=== PATIENT | male | born 1940 | race Caucasian/White ===

== ENCOUNTER → 2018-01-12 | Outpatient (CLI) | payer MEDICARE ==
[~2018-01-12] MED LIST: AMLO5TAB3 PO; ASCA500 PO; CHOL1000 PO; COEN1CAP PO; DABI1CAP PO; FLM4 PO; GLC/500 PO; LISI-729 PO; NTRGSL/4 UT; OMEG10007 PO; PRLSR20 PO; PRS5 PO; SPIR25TA PO; SYMIN160 INH
--- NOTE | 2018-01-12 11:04 | DIAGNOSTIC IMAGING REPORT ---
ART DOP LOWER EXT BILAT CLINICAL HISTORY: BILATERAL LOWER EXT CLAUDICATION pain. Claudication. COMPARISON STUDY: None FINDINGS: Real-time as well as Doppler evaluation of the arterial structures of the lower legs was performed. Waveforms are triphasic throughout. Velocity characteristics are unremarkable. The following blood pressure indices were obtained. On the right, posterior tibial is 0.97 and dorsalis pedis is 0.77. On the left, posterior tibial is 1.12 and dorsalis pedis is 0.8. IMPRESSION: No significant stenosis. Minimal atherosclerotic change of the small caliber vessels of the lower extremities. The above report was generated using voice recognition software. It may contain grammatical, syntax or spelling errors. Electronically signed by: Inderjit Hernandez M.D. 01/12/2018 11:03 AM Dictated Date/Time: 01/12/2018 11:01 AM
== END | disposition home or self-care (01) ==
LOC: C.ULTR 09:35
PROVIDERS: ATTEND Physician Assistant
DX: I73.9 Peripheral vascular disease, unspecified (principal)

== ENCOUNTER → 2018-01-28 | Day surgery (SDC) | payer MEDICARE ==
[2018-01-05 08:58] VITALS: BMI 32.0
--- NOTE | 2018-01-11 15:34 | PAT Medication Instructions ---
Service Date Jan 11, 2018. Current Home Medication List Amlodipine (Norvasc), 5 MG PO QAM Ascorbic Acid (Vitamin C), 1 TAB PO BID Budesonide/Formoterol Fumarate (Symbicort 160/4.5 Inhaler ), 2 PUFFS INH QPM Cholecalciferol (Vitamin D3), 1 TAB PO BID Coenzyme W61-Ofagehh E (Coq10 St-100 100-100 mg-Unit), 1 CAP PO HS Dabigatran Etexilate Mesylate (Pradaxa), 1 CAP PO BID Finasteride (Finasteride), 1 TAB PO QAM Fish Oil ([place]-3), 1 CAP PO QAM Lisinopril (Zestril), 5 MG PO QAM Metformin Hcl (Glucophage), 500 MG PO BID Nitroglycerin (Nitrostat), 0.4 MG UT PRN Omeprazole (Prilosec), 20 MG PO QAM Spironolactone (Aldactone), 12.5 MG PO BID Tamsulosin HCl (Tamsulosin HCl), 1 CAP PO BID Medication Instructions For Your Scheduled Surgery - Hold the following medications 2 weeks prior to surgery: Fish Oil ([place]-3), 1 CAP PO QAM Coenzyme J24-Qyvpghk E (Coq10 St-100 100-100 mg-Unit), 1 CAP PO HS - Check with surgeon and prescribing physician for instructions: Dabigatran Etexilate Mesylate (Pradaxa), 1 CAP PO BID - Hold the following medications the morning of surgery: Ascorbic Acid (Vitamin C), 1 TAB PO BID Cholecalciferol (Vitamin D3), 1 TAB PO BID Finasteride (Finasteride), 1 TAB PO QAM Lisinopril (Zestril), 5 MG PO QAM Metformin Hcl (Glucophage), 500 MG PO BID Amlodipine (Norvasc), 5 MG PO QAM Spironolactone (Aldactone), 12.5 MG PO BID Tamsulosin HCl (Tamsulosin HCl), 1 CAP PO BID - Take the following medications the morning of surgery with a sip of water: Omeprazole (Prilosec), 20 MG PO QAM Nitroglycerin (Nitrostat), 0.4 MG UT PRN (if needed) - Take the following medications as scheduled the night before surgery: Spironolactone (Aldactone), 12.5 MG PO BID Tamsulosin HCl (Tamsulosin HCl), 1 CAP PO BID Nitroglycerin (Nitrostat), 0.4 MG UT PRN (if needed) Metformin Hcl (Glucophage), 500 MG PO BID Cholecalciferol (Vitamin D3), 1 TAB PO BID Budesonide/Formoterol Fumarate (Symbicort 160/4.5 Inhaler ), 2 PUFFS INH QPM Ascorbic Acid (Vitamin C), 1 TAB PO BID If you have any questions please call us at [phone] or [phone] or [phone]
[2018-01-12 11:22] VITALS: BMI 31.0
[2018-01-12 12:16] LABS: BASO % 0.4 %; BASO ABS # 0.03 K/uL (0-0.2); EOS % 4.5 %; HEMATOCRIT 39.6 % (42-52); HEMOGLOBIN 13.3 g/dL (14.0-18.0); IG# 0.01 K/uL (0.00-0.02); LYMPH % 20.7 %; LYMPH ABS # 1.39 K/uL (1.2-3.4); MEAN CELL VOLUME 97.8 fL (80-100); MEAN CORPUSCULAR HEMOGLOBIN 32.8 pg (25-34); MEAN CORPUSCULAR HGB CONC 33.6 g/dl (32-36); MEAN PLATELET VOLUME 9.9 fL (7.4-10.4); NEUT % 65.3 %; NEUT ABS # 4.37 K/uL (1.4-6.5); PLATELET COUNT 233 K/uL (130-400); RED CELL DISTRIBUTION WIDTH CV 14.9 % (11.5-14.5); RED CELL DISTRIBUTION WIDTH SD 53.3 fL (36.4-46.3)
--- NOTE | 2018-01-12 12:22 | DIAGNOSTIC IMAGING REPORT ---
CHEST 2 VIEWS ROUTINE CLINICAL HISTORY: pat preoperative evaluation COMPARISON STUDY: No previous studies for comparison. FINDINGS: Mild cardiomegaly.] Median sternotomy. Emphysematous change. Mild interstitial prominence both lung bases possibly chronic. IMPRESSION: 1. Emphysematous change. 2. Prominent bibasilar interstitial markings possibly chronic The above report was generated using voice recognition software. It may contain grammatical, syntax or spelling errors. Electronically signed by: Inderjit Hernandez M.D. 01/12/2018 12:21 PM Dictated Date/Time: 01/12/2018 12:20 PM
[~2018-01-28] VITALS: Ht 167.6 cm; Wt 88.9 kg
[~2018-01-28] MED LIST changes: +ALBUT/IPRATROP 3MG/0.5MG NEB 3 ML VIAL INH ONE; +ATROPINE SULFATE 0.1 MG/ML 5ML SYR IV PRN; +BELLADONNA/OPIUM SUPP 60 MG SUPP PR ONE; +CIPR-255 PO; +CIPROFLOXACIN / D5W 400 MG IV SCH; +DEXAMETHASONE SOD INJ 4 MG/ML VIAL ONE; +EpHEDrine SULFATE 50MG/5ML SYR ONE; +EpHEDrine SULFATE INJ 50 MG/ML AMP IV PRN; +FENTANYL CITRATE INJ 50 MCG/1 ML 2 ML VIAL ONE; +HYDROmorphone INJ 1 MG/ML SYR IV PRN; +LACTATED RINGER'S 1000ML 1,000 ML IV SCH; +LIDOCAINE HCL 2% 2 ML VIAL (20MG/ML) ONE; +ONDANSETRON INJ 2 MG/ML 2 ML VIAL IV PRN; +ONDANSETRON INJ 2 MG/ML 2 ML VIAL ONE; +OXYC-57 PO; +OXYCODONE/ACETAMINOPHEN 5-325 TAB PO PRN; +PHEN-775 PO; +PHENAZOPYRIDINE HCL 200 MG TAB PO PRN; +PROPOFOL IV EMULSION 10 MG/ML 20 ML VIAL ONE
[2018-01-28 06:12] VITALS: BP 150/91; PULSE 66; TEMP 36.6; O2SAT 96; Ht 167.6 cm; Wt 88.9 kg
[2018-01-28 07:54] VITALS: O2SAT 91
--- NOTE | 2018-01-28 08:07 | History and Physical ---
History Date of Service: Jan 28, 2018. Chief Complaint: BPH Primary Care Physician: Lyudmila Herrera D.O. Pt seen a urologist before?: Yes History of Present Illness 78 yo male for GLTURP today. Past notes reviewed. He denies changes in his general health since his last visit. Prior cysto anatomy noted, stopped Pradaxa 6 days as instructed. No new changes, remains on BPH meds. Laboratory Labs were reviewed and are within normal limits unless listed below. Labs are available in the chart and at [facility] Past History Past Medical History: arthritis, BPH, coronary artery disease, diabetes, high cholesterol, other (emphysema) Past Surgical History: appendectomy, cardiac catheterization, cholecystectomy, other Family History Cardiac disease, DM Social History Hx Tobacco Use In Past Year?: No (QUIT 35 YEARS AGO) Smoking: quit greater than 1 year Marital status: Housing status: lives with significant other Occupation status: retired Allergies Coded Allergies: No Known Allergies (Unverified , 01/28/18) Medications Home Medications: Home Meds and Scripts Medications Dose Route/Sig Max Daily Dose Days Date Category Nitrostat (Nitroglycerin) 0.4 Mg Tab 0.4 Mg UT PRN 01/05/18 Reported Symbicort 160/4.5 Inhaler (Budesonide/Formoterol Fumarate) Aero 2 Puffs INH QPM 01/05/18 Reported Vitamin D3 (Cholecalciferol) 1,000 Unit Tab 1 Tab PO BID 01/05/18 Reported Finasteride 5 Mg Tab 1 Tab PO QAM 12/22/17 Reported Prilosec (Omeprazole) 20 Mg Capcr 20 Mg PO QAM 12/22/17 Reported [place]-3 (Fish Oil) 1 Ea Cap 1 Cap PO QAM 12/22/17 Reported Vitamin C (Ascorbic Acid) 500 Mg Tab 1 Tab PO BID 12/22/17 Reported Aldactone (Spironolactone) 25 Mg Tab 12.5 Mg PO BID 12/22/17 Reported Norvasc (Amlodipine Besylate) 5 Mg Tab 5 Mg PO QAM 12/22/17 Reported Glucophage (Metformin Hcl) 500 Mg Tab 500 Mg PO BID 12/22/17 Reported Tamsulosin HCl 0.4 Mg Cap 1 Cap PO BID 12/22/17 Reported Zestril (Lisinopril) 5 Mg Tab 5 Mg PO QAM 12/22/17 Reported Pradaxa (Dabigatran Etexilate Mesylate) 75 Mg Cap 1 Cap PO BID 12/22/[address]-100 100-100 mg-Unit (Coenzyme A31-Nxfkrqw E) 1 Cap Cap 1 Cap PO HS 12/22/17 Reported Inpatient Medications: Current Inpatient Medications Medications (Trade) Dose Ordered Sig/Magen Route Start Time Stop Time Status Last Admin Dose Admin Lactated Ringer's 1,000 ml @ 15 mls/hr Q24H IV 01/28/18 06:00 01/29/18 05:59 01/28/18 06:30 15 MLS/HR Ciprofloxacin/ Dextrose 200 ml @ 100 mls/hr PREOP IV 01/28/18 06:00 01/28/18 18:00 Fentanyl Citrate (Fentanyl Inj) 25 mcg Q5M PRN IV 01/28/18 07:15 01/28/18 12:00 Hydromorphone HCl (Dilaudid Inj) 0.5 mg Q5M PRN IV 01/28/18 07:15 01/28/18 12:15 Ondansetron HCl (Zofran Inj) 4 mg ONE PRN IV 01/28/18 07:15 01/28/18 12:15 Ephedrine Sulfate (EpHEDrine SULFATE INJ) 5 mg Q5M PRN IV 01/28/18 07:15 01/28/18 12:15 Atropine Sulfate (Atropine Sulfate 0.1mg/ml Inj) 0.5 mg Q1M PRN IV 01/28/18 07:15 01/28/18 12:15 Review of Systems Review of Systems Constitutional: No fever, No chills Eyes: No double vision Neurological: No passing out Endocrine: No too hot Gastrointestinal: No nausea, No vomiting Cardiovascular: No angina Respiratory: No coughing up blood Skin: No boils Ears / Nose / Throat: No hearing loss Psychologic / Mental: No trouble remembering Male : + weak stream Physical Exam Vital Signs: Vital Signs Past 12 Hours Date Time Temp Pulse Resp B/P (MAP) Pulse Ox O2 Delivery O2 Flow Rate FiO2 01/28/18 07:54 15 91 Room Air 01/28/18 06:12 36.6 66 18 150/91 (110) 96 Room Air Physical Exam: General Appearance: WD/WN, no apparent distress ENT: hearing grossly normal Neck: supple, no adenopathy Respiratory/Chest: no respiratory distress, no accessory muscle use Cardiovascular: no JVD Gastrointestinal: Abdomen: normal abdomen Extremities: non-tender Neurologic/Psychiatric: alert Skin: normal color Assessment & Plan Assessment & Plan A/P 78 yo male with BPH. GLTURP as planned. NICCI Mccollum, SOMMERs Consent reviewed.
--- NOTE | 2018-01-28 08:28 | Discharge Instructions ---
Discharge Instructions Date of Service Jan 28, 2018. Admission Reason for Admission: Benign Prostatic Hyperplasia W/Urinary Obstruction Discharge Discharge Diagnosis / Problem: BPH s/p GLTURP Discharge Goals Goal(s): Improve function, Improve disease control, Therapeutic intervention Activity Recommendations Activity Limitations: as noted below Lifting Limitations: no more than 25 pounds, gradually increase as tolerated Exercise/Sports Limitations: rest today, gradually increase as tolerated May Resume Sexual Activity: after follow-up appointment Shower/Bathe: tomorrow (no tub bath with catheter in place) . Instructions / Follow-Up Instructions / Follow-Up Catheter removal in urology office at [address] [place] [address] on Feb 02 at 9 am Postoperative MD visit on Feb 15 at 10:15 AM in [place] office Call office with questions. Current Hospital Diet Patient's current hospital diet: Discharge Diet Recommended Diet: Regular Diet (good fluid intake) Procedures Procedures Performed: Greenlight TURP Pending Studies Studies pending at discharge: no Medical Emergencies . Who to Call and When: Medical Emergencies: If at any time you feel your situation is an emergency, please call 911 immediately. . Non-Emergent Contact Non-Emergency issues call your: Urologist Call Non-Emergent contact if: you have a fever, temperature is above 101, your pain is not controlled, your pain is worsening, your pain is unusual for you, your pain is concerning you, you have any medication questions . . "Provider Documentation" section prepared by Beny Michele. . [place] Drug Monitoring Program Search Results: patient reviewed within database, no issues identified (no recent narcotic Rx)
--- NOTE | 2018-01-28 09:10 | [facility] Operative Report ---
Operative Report Operative Date Jan 28, 2018. Pre-Operative Diagnosis Benign Prostatic Hyperplasia with obstruction and lower urinary tract symptoms Post-Operative Diagnosis Same Procedure(s) Performed Greenlight vaporization of prostate gland Surgeon Dr. Beny Michele Loan Processor Surgeon(s) none Estimated Blood Loss Minimal Findings Open fossa after 90,000 J used, excellent hemostasis Specimens None Drains 22 [place] silicone with 10 cc of sterile water in the balloon Anesthesia Type General Complication(s) none Disposition no Recovery Room / PACU Indications Pleasant 78-year-old male here today for greenlight vaporization of his prostate due to refractory voiding symptoms. Please see H&P for further details. Intravenous ciprofloxacin provided for antibiotic coverage and SCDs used for DVT prophylaxis. Description of Procedure Patient was properly identified and brought into the operative suite after identification of appropriate consent in the chart. General anesthesia with laryngeal mask was initiated and the patient was prepped and draped in standard fashion for this procedure. Full timeout procedure was followed. Greenlight laser resectoscope was introduced into the bladder under direct visualization using a visual obturator. Bladder was surveyed in its entirety demonstrating no intravesical masses, papillary lesions or other abnormalities. Grade 2 trabeculation was present. Ureteral orifices were identified in the normal anatomic location and adequately removed from the bladder neck. An elevated bladder neck and small median lobe is appreciated on office cystoscopy was again noted. Lateral lobe hypertrophy was noted as well. Using a side fire greenlight laser fiber circumferential vaporization of the prostate was performed between 80 and 120 W. A total of 90,000 J of energy were used. Median lobe of the bladder neck were able to be lasered until flush with the trigone with relaxing incisions being made at the 5 and 7 o'clock position to avoid future bladder neck contracture. No injury to the ureteral orifice ease was present after completion of resection at the end of the case. Lateral lobes have been well unobstructed with excellent hemostasis. Care was taken to avoid any resection or vaporization distal to the verumontanum. After the procedure was complete bladder was partially distended and resectoscope was removed. 22 [place] silicone Herr was placed with 10 cc of sterile water in the balloon and return of clear irrigant. Anesthesia was reversed and patient was transferred to the recovery room in stable condition. Belladonna and opium suppository was provided at the end of the case for additional postoperative analgesia. Follow-up instructions: Patient will be discharged home with a Herr catheter in place. Prescription for ciprofloxacin, Pyridium and analgesics was provided. Outpatient appointment for trial of void and postoperative check are confirmed. Patient is instructed to contact our service should he note any fevers, chills, nausea, vomiting or other difficulties in the postoperative period. I attest to the content of the Intraoperative Record and any orders documented therein. Any exceptions are noted below.
[2018-01-28] MEDS: FENTANYL CITRATE INJ 50 MCG/1 ML 2 ML VIAL IV PRN ×2 (09:35→09:41)
[2018-01-28 10:00] VITALS: BP 143/65; PULSE 70; TEMP 36.7; O2SAT 93
--- NOTE | 2018-01-28 10:02 | Anesthesiology Progress Note ---
Anesthesia Post Op Note Date & Time Jan 28, 2018 at 10:02 Vital Signs Pain Intensity: 4 Vital Signs Past 12 Hours Date Time Temp Pulse Resp B/P (MAP) Pulse Ox O2 Delivery O2 Flow Rate FiO2 01/28/18 09:45 69 18 132/71 95 Room Air 01/28/18 09:35 70 18 127/65 100 Oxymask 10 01/28/18 09:25 36.2 82 16 137/54 99 Oxymask 10 01/28/18 09:15 36.2 88 16 155/84 98 Oxymask 10 01/28/18 07:54 15 91 Room Air 01/28/18 06:12 36.6 66 18 150/91 (110) 96 Room Air Notes Mental Status: alert / awake / arousable, participated in evaluation Pt Amnestic to Procedure: Yes Nausea / Vomiting: adequately controlled Pain: adequately controlled Airway Patency, RR, SpO2: stable & adequate BP & HR: stable & adequate Hydration State: stable & adequate Anesthetic Complications: no major complications apparent
[2018-01-28 10:30] VITALS: BP 122/61; PULSE 70; TEMP 35.6; O2SAT 94
== END | disposition home or self-care (01) ==
LOC: C.ACU 05:50
PROVIDERS: ATTEND Urology
DX: N40.1 Benign prostatic hyperplasia with lower urinary tract symptoms (principal); R39.9 Unspecified symptoms and signs involving the genitourinary system; E11.9 Type 2 diabetes mellitus without complications; I25.10 Atherosclerotic heart disease of native coronary artery without angina pectoris; J44.9 Chronic obstructive pulmonary disease, unspecified; I48.91 Unspecified atrial fibrillation; M19.90 Unspecified osteoarthritis, unspecified site; E78.00 Pure hypercholesterolemia, unspecified; Z90.49 Acquired absence of other specified parts of digestive tract